=== PATIENT | male | born 1945 | race Two or more races ===

== ENCOUNTER 2019-09-29 10:59 | Emergency (ER) | payer MEDICARE ==
[2019-09-29 11:12] VITALS: RESP 18; TEMP 97.8
[2019-09-29] MEDS ORDERED: PIPERACILLIN-TAZOBACTAM 3.375 GM in SODIUM CHLORIDE 0.9% 100 ML IVPB STA (11:49)
--- NOTE | 2019-09-29 12:12 | ED ---
General Adult HPI - General Chief complaint: Abdominal Pain Stated complaint: lab recheck Time Seen by Provider: 09/29/19 11:48 Source: patient, family Mode of arrival: wheelchair Limitations: no limitations - History of Present Illness Initial comments: Dictation was produced using [employer] dictation software. please excuse any grammatical, word or spelling errors. This patient was cared for during a federal and state declared state of emergency secondary to Covid 19 Chief Complaint: 74-year-old male presents with abnormal urine History of Present Illness: 74-year-old male he is sent in to the emergency department by his primary care physician for purulent urine. Patient noticed that his urine characteristics appear to be abnormal about a week ago. Over the next couple days his urine became more cloudy. Patient denies any symptoms. He does not have any pain complaints. No flank pain. No abdominal pain. No burning on urination. Patient feels baseline. The ROS documented in this emergency department record has been reviewed and confirmed by me. Those systems with pertinent positive or negative responses have been documented in the HPI. All other systems are other negative and/or noncontributory. PHYSICAL EXAM: General Impression: Alert and oriented x3, not in acute distress HEENT: Normocephalic atraumatic, extra-ocular movements intact, pupils equal and reactive to light bilaterally, mucous membranes moist. Cardiovascular: Heart regular rate and rhythm Chest: Able to complete full sentences, no retractions, no tachypnea Abdomen: abdomen soft, non-tender, non-distended, no organomegaly Musculoskeletal: Pulses present and equal in all extremities, no peripheral edema Motor: no focal deficits noted Neurological: CN II-XII grossly intact, no focal motor or sensory deficits noted Skin: Intact with no visualized rashes Psych: Normal affect and mood : Mild left testicular pain with palpation ED course: 74-year-old male presents with abnormal urine. vital signs upon arrival are within acceptable limits. Urine was observed at bedside. It's tyler purulence. Have some mild left testicular tenderness. Laboratory evaluation obtained. CBC remarkable. Metabolic panel is negative. Urinalysis consistent with urinary tract infection. Scrotal ultrasound was performed showing incidental findings of left hydrocele mass of the left testicle and cystic area to the left testicle as well. Computed tomography scan of the abdomen and pelvis was obtained showing distended bladder with concentric wall thickening. Is also concern of possible lytic lesion to L4. Patient was notified of these findings. Post void residual was performed showing greater than 1000 mL of urine. Phillips catheter was placed with drainage of purulent fluid and urine. Patient did report significant relief with Phillips catheter placement. Patient be discharged with Phillips catheter. Patient also given pres cription for antibiotics. He is given referral to urology. Return parameters discussed. Patient will be discharged. Patient told to follow-up with his primary care physician and urology regarding the incidental findings on his imaging studies. - Related Data Previous Rx's Medication Instructions Recorded Levofloxacin [Levaquin] 750 mg PO DAILY 5 Days #5 tab 09/29/19 Allergies Allergy/AdvReac Type Severity Reaction Status Date / Time No Known Allergies Allergy Verified 09/29/19 11:12 Review of Systems ROS Statement: Those systems with pertinent positive or pertinent negative responses have been documented in the HPI. ROS Other: All systems not noted in ROS Statement are negative. Past Medical History Past Medical History: Hypertension History of Any Multi-Drug Resistant Organisms: None Reported Past Surgical History: Orthopedic Surgery Additional Past Surgical History / Comment(s): left knee surgery, screws in ank le Past Psychological History: No Psychological Hx Reported Smoking Status: Never smoker Past Alcohol Use History: Occasional Past Drug Use History: None Reported General Exam Limitations: no limitations Course Vital Signs 09/29/19 09/29/19 11:07 13:45 Temperature 97.8 F Pulse Rate 67 76 Respiratory 18 18 Rate Blood Pressure 141/80 125/72 O2 Sat by Pulse 98 97 Oximetry Medical Decision Making - Lab Data Result diagrams: 09/29/19 12:04 09/29/19 12:04 Lab Results 09/29/19 09/29/19 09/29/19 Range/Units 11:30 12:04 12:04 WBC 8.1 (3.8-10.6) k/uL RBC 4.75 (4.30-5.90) m/uL Hgb 15.6 (13.0-17.5) gm/dL Hct 45.1 (39.0-53.0) % MCV 94.9 (80.0-100.0) fL MCH 32.8 (25.0-35.0) pg MCHC 34.6 (31.0-37.0) g/dL RDW 13.5 (11.5-15.5) % Plt Count 248 (150-450) k/uL Neutrophils % 77 % Lymphocytes % 9 % Monocytes % 9 % Eosinophils % 3 % Basophils % 1 % Neutrophils # 6.2 (1.3-7.7) k/uL Lymphocytes # 0.8 L (1.0-4.8) k/uL Monocytes # 0.7 (0-1.0) k/uL Eosinophils # 0.2 (0-0.7) k/uL Basophils # 0.1 (0-0.2) k/uL Sodium 138 (137-145) mmol/L Potassium 4.2 (3.5-5.1) mmol/L Chloride 102 (98-107) mmol/L Carbon Dioxide 27 (22-30) mmol/L Anion Gap 9 mmol/L BUN 25 H (9-20) mg/dL Creatinine 1.09 (0.66-1.25) mg/dL Est GFR (CKD-EPI)AfAm 76 (>60 ml/min/1.73 sqM) Est GFR (CKD-EPI)NonAf 66 (>60 ml/min/1.73 sqM) Glucose 94 (74-99) mg/dL Calcium 9.1 (8.4-10.2) mg/dL Total Bilirubin 0.9 (0.2-1.3) mg/dL AST 29 (17-59) U/L ALT 22 (4-49) U/L Alkaline Phosphatase 98 (38-126) U/L Total Protein 6.8 (6.3-8.2) g/dL Albumin 3.8 (3.5-5.0) g/dL Urine Color Light Red Urine Appearance Turbid (Clear) Urine pH 6.0 (5.0-8.0) Ur Specific Marlin 1.015 (1.001-1.035) Urine Protein 2+ H (Negative) Urine Glucose (UA) Negative (Negative) Urine Ketones Negative (Negative) Urine Blood Small H (Negative) Urine Nitrite Positive (Negative) Urine Bilirubin Negative (Negative) Urine Urobilinogen <2.0 (<2.0) mg/dL Ur Leukocyte Esterase Large H (Negative) Urine RBC 32 H (0-5) /hpf Urine WBC >182 H (0-5) /hpf Urine WBC Clumps Many H (None) /hpf Urine Bacteria Many H (None) /hpf Disposition Clinical Impression: UTI (urinary tract infection), Urinary retention Disposition: HOME SELF-CARE Condition: Good Instructions (If sedation given, give patient instructions): Urinary Tract Infection in Men (ED), Urinary Retention in Men (ED) Additional Instructions: Please follow up with urology and primary care physician regarding incidental- abnormal findings on imaging studies. Prescriptions: Levofloxacin [Levaquin] 750 mg PO DAILY 5 Days #5 tab Is patient prescribed a controlled substance at d/c from ED?: No Referrals: Cam Mendoza MD [Primary Care Provider] - 1-2 days Macario Mendes MD [STAFF PHYSICIAN] - 1-2 days Time of Disposition: 15:22
[2019-09-29 12:32] LABS: Basophils # (A) 0.1 k/uL (0-0.2); Basophils % (A) 1 %; Eosinophils # (A) 0.2 k/uL (0-0.7); Eosinophils % (A) 3 %; HCT 45.1 % (39.0-53.0); HGB 15.6 gm/dL (13.0-17.5); Lymphocytes # (A) 0.8 k/uL (1.0-4.8); Lymphocytes % (A) 9 %; MCH 32.8 pg (25.0-35.0); MCHC 34.6 g/dL (31.0-37.0); MCV 94.9 fL (80.0-100.0); Mean Platelet Volume 8.3; Monocytes # (A) 0.7 k/uL (0-1.0); Monocytes % (A) 9 %; Neutrophils # (A) 6.2 k/uL (1.3-7.7); Neutrophils % (A) 77 %; Platelet Count 248 k/uL (150-450); RBC 4.75 m/uL (4.30-5.90); RDW 13.5 % (11.5-15.5); WBC 8.1 k/uL (3.8-10.6)
[2019-09-29 12:34] LABS: Appearance,Urine Turbid (Clear); Bacteria,Urine Many /hpf; Bilirubin,Urine Negative (Negative); Blood,Urine Small (Negative); Color,Urine Light Red; Glucose,Urine (UA) Negative (Negative); Ketones,Urine Negative (Negative); Leukocyte Esterase,Urine Large (Negative); Nitrite,Urine Positive (Negative); Protein,Urine 2+ (Negative); RBC,Urine 32 /hpf (0-5); Urobilinogen,Urine <2.0 mg/dL (<2.0); WBC,Urine >182 /hpf (0-5)
[2019-09-29 12:39] LABS: Albumin 3.8 g/dL (3.5-5.0); Calcium 9.1 mg/dL (8.4-10.2); Potassium 4.2 mmol/L (3.5-5.1); Total Bilirubin 0.9 mg/dL (0.2-1.3); Total Protein 6.8 g/dL (6.3-8.2)
[2019-09-29 12:41] LABS: Specific Gravity,Urine 1.015 (1.001-1.035)
--- NOTE | 2019-09-29 13:52 | US ---
EXAMINATION TYPE: US scrotum with doppler. DATE OF EXAM: 09/29/2019 COMPARISON: NONE CLINICAL HISTORY: 74-year-old male with left testicular pain. TECHNIQUE: Grayscale and color Doppler Duplex imaging performed of the scrotum. FINDINGS: EXAM MEASUREMENTS: TESTICLES: Right Testicle: 4.3 x 2.7 x 3.0 cm Left Testicle: 3.8 x 2.9 x 2.8 cm. Left testicle is slightly heterogeneous with a possible poorly de fined rounded 2.2 cm area anteriorly. EPIDIDYMIS HEAD: Right Epididymis: 1.0 cm with a 9 x 6 mm epididymal head cyst Left Epididymis: not clearly identified. There is a 2.2 x 2.1 cm cystic area superior to the left te sticle, possibly of epididymal etiology. Satisfactory arterial and venous flow is present bilaterally. Presence of hydroceles: yes, moderate-sized on the left with internal debris. Presence of varicoceles: yes, lateral to right testicle IMPRESSION: 1. No sonographic evidence for testicular torsion. 2. Moderate-sized left hydrocele with internal debris. 3. Varicocele noted on the right. We note that a CT abdomen and pelvis has been ordered. Retroperiton eal lymphadenopathy as a cause of unilateral right varicocele can be excluded on that study. 4. Rounded poorly defined 2.2 cm area anterior aspect of the left testicle. Urologic referral recomme nded as a subtle mass is difficult to exclude at this time. 5. 2.2 cm cystic area superior to the left testicle, possible large epididymal head cyst.
--- NOTE | 2019-09-29 14:35 | CT ---
EXAMINATION TYPE: CT abdomen pelvis w con DATE OF EXAM: 09/29/2019 COMPARISON: None. HISTORY: Purulent Urine CT DLP: 3108 mGycm, Automated Exposure Control for Dose Reduction was Utilized. CONTRAST: CT scan of the abdomen and pelvis is performed with oral and with IV Contrast, patient injected with 100 mL of Isovue 300. FINDINGS: LUNG BASES: There is mild cardiomegaly with moderate to severe three-vessel coronary artery calcifica tion and/or stents. There is trace bilateral pleural effusions. There is 3 to 4 mm calcified nodule o r granuloma posterior left lung base on axial image 13. LIVER/GB: Few calcifications scattered throughout the right hepatic lobe are present. Liver is diffus isis low dense suggesting fatty infiltration. PANCREAS: No significant abnormality is seen. SPLEEN: No significant abnormality is seen. ADRENALS: There is 1.6 x 1.1 cm low dense right adrenal nodule presumed benign lipid rich adenoma and smaller 1.6 x 0.9 cm nonspecific left adrenal nodule axial image 24. Favor benign. KIDNEYS: Some cortical thinning both kidneys. Symmetric cortical medullary uptake and excretion both kidneys without hydronephrosis seen bilaterally. Occasional roughly 1 cm simple-appearing thin-walled cysts scattered throughout the left kidney. Moderate bladder distention up to the superior L4 level with wvor-eb-utqjqxta concentric wall thickening. No suspicious intraluminal mass or calculus. Local mass effect is present. BOWEL: Poorly distended stomach. No suspicious small or large bowel dilatation. PROSTATE/SEMINAL VESICLES: Markedly enlarged heterogeneous prostate gland consistent with BPH bulging on bladder base. LYMPH NODES: No greater than 1cm abdominal or pelvic lymph nodes are appreciated. OSSEOUS STRUCTURES: Demineralization is present. Mild chronic compression fracture L1 level. Lytic le kevin in L4 level with some surrounding sclerosis is nonspecific, question subacute fracture versus ly tic lesion related to metastatic disease. Follow-up is advised. Facet arthropathy lower lumbar levels . OTHER: Moderate calcified plaque of aorta extends into branch vessels. IMPRESSION: 1. Moderately distended bladder with mild/moderate concentric wall thickening may be a product of acu te cystitis on background outlet obstruction related to marked BPH. 2. Cannot exclude focal lytic lesion involving L4 vertebra. Correlate clinically to determine need fo r further workup as differential includes myeloma versus lytic metastatic disease. Subacute fracture would be a differential due to surrounding sclerosis.
[2019-09-29 15:23] VITALS: BP 131/93; PULSE 75
== END 2019-09-29 16:07 | disposition home or self-care (01) ==
LOC: EC 10:59
DX: N39.0 Urinary tract infection, site not specified (principal); R33.9 Retention of urine, unspecified; N43.3 Hydrocele, unspecified
CPT/HCPCS: 99284 ×2; 51702 ×2; 96365 ×2; 51798; 36415; 80053; 85025; 81001; 87040; 93975; 76870; 74177; J2543; Q9967

== ENCOUNTER → 2022-04-12 | Outpatient (CLI) | payer MEDICARE ==
--- NOTE | 2022-04-12 11:52 | CT ---
EXAMINATION TYPE: CT brain wo con, CT facial bones wo con DATE OF EXAM: 04/12/2022 HISTORY: Fall injury with headache and facial pain. CT DLP: 1104.6 (accession [id number]), 480.80 (accession [id number]) mGycm. Automated Exposure Control f or Dose Reduction was Utilized. TECHNIQUE: CT scan of the head and facial bones are performed without contrast. COMPARISON: None. FINDINGS: There is no acute intracranial hemorrhage or midline shift identified. There is mild vent ricular and sulcal prominence. There is oiyv-sb-dyochhqd low attenuation in the deep and periventric ular white matter. The calvarium is intact. There is moderate to large size acute frontal scalp evonne debi with more hyperdense 1.5 cm component suggesting site of more recent or active bleed axial image 33. Age-indeterminate fractures of the nasal bones with moderate overlying soft tissue swelling favoring acute fractures. Orbital floors and rodriguez are intact. The globes are intact bilaterally. There is lef t-sided scleral calcification. There is moderate soft tissue swelling over the bilateral globes. Intr aconal fat is preserved bilaterally. The zygomatic arches are intact bilaterally. The visualized port ion of the mandible is intact. The temporomandibular joints are maintained bilaterally. Paranasal sin uses are grossly clear. IMPRESSION: 1. No acute intracranial hemorrhage or midline shift. There is mild diffuse cerebral atrophy and chr onic eriw-ih-qxkqzhdr small vessel ischemic change noted. There is moderate to large size acute fron samaria scalp hematoma. 2. Age-indeterminate suspected acute comminuted slightly displaced fractures of the nasal bones. Mode rate soft tissue swelling is noted anteriorly. No additional acute displaced facial bone fractures.
== END | disposition home or self-care (01) ==
LOC: RADCTMAIN 11:10
PROVIDERS: ATTEND Family Medicine
DX: S00.03XA Contusion of scalp, initial encounter (principal); S02.2XXA Fracture of nasal bones, initial encounter for closed fracture; S09.90XD Unspecified injury of head, subsequent encounter; I67.82 Cerebral ischemia; G31.9 Degenerative disease of nervous system, unspecified; M79.89 Other specified soft tissue disorders; X58.XXXA Exposure to other specified factors, initial encounter
CPT/HCPCS: 70450; 70486

== ENCOUNTER → 2022-10-09 | Outpatient (CLI) | payer MEDICARE ==
--- NOTE | 2022-10-09 14:17 | NM ---
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 Images acq uired 3 hours post injection. FINDINGS: There is intense abnormal uptake involving the right shoulder could be on the basis of previous traum a or severe arthropathy. Neoplastic process not excluded. Recommend There is moderate to intense abnormal uptake involving the lower cervical spine and the left likely p ost degenerative. There is moderate intensity uptake involving the left shoulder likely postoperative. There is bilateral intense uptake in the sternoclavicular joints likely postoperative area Abnormal uptake involving the left mandible likely periodontal disease. Residual focal area of uptake involving the anterior right mid rib cage likely the patient's prior tr auma. There is intense abnormal uptake involving the right knee compatible severe arthritic change. There is a photopenic defect left knee compatible with previous surgery. There is abnormal uptake involving the feet slightly post arthritic. Intense abnormal uptake at the thoracolumbar junction which could be on the basis of severe degenerat kelsey change or compression fracture. IMPRESSION: Intense abnormal uptake involving thoracolumbar junction could be on the basis of compression fractur es or severe degenerative change. If the patient has a history of malignancy then metastasis would be in the differential diagnosis. Abnormal uptake right shoulder severe intensity most likely the basis of prior trauma. Recommend x-ra y correlation to exclude other etiologies.
== END | disposition home or self-care (01) ==
LOC: RADNMMAIN 10:09
PROVIDERS: ATTEND Physical Medicine & Rehabilitation
DX: M43.16 Spondylolisthesis, lumbar region (principal); S32.010A Wedge compression fracture of first lumbar vertebra, initial encounter for closed fracture; M47.816 Spondylosis without myelopathy or radiculopathy, lumbar region; R93.7 Abnormal findings on diagnostic imaging of other parts of musculoskeletal system
CPT/HCPCS: 78306; A9503

== ENCOUNTER → 2022-11-27 | Outpatient (CLI) | payer MEDICARE ==
[2022-11-27 11:49] LABS: INR 1.1 (<1.2); Prothrombin Time 11.5 sec (9.0-12.0)
[2022-11-27 15:47] LABS: Basophils # (A) 0.12 X 10*3/uL (0.00-0.10); Basophils % (A) 1.9 %; Eosinophils # (A) 0.37 X 10*3/uL (0.04-0.35); Eosinophils % (A) 5.8 %; HCT 50.8 % (39.6-50.0); HGB 17.2 d/dL (13.0-17.0); Lymphocytes # (A) 0.77 X 10*3/uL (0.90-5.00); Lymphocytes % (A) 12.1 %; MCH 31.8 pg (27.0-32.0); MCHC 33.9 d/dL (32.0-37.0); MCV 93.9 FL (80.0-97.0); Mean Platelet Volume 10.7 FL (9.5-12.2); Monocytes # (A) 0.65 X 10*3/uL (0.20-1.00); Monocytes % (A) 10.2 %; NRBC Per 100 WBC 0 X 10*3/uL (0.00-0.01); Neutrophils # (A) 4.43 X 10*3/uL (1.80-7.70); Neutrophils % (A) 69.8 %; Platelet Count 288 X 10*3/uL (140-440); RBC 5.41 X 10*6/uL (4.40-5.60); RDW 14.7 % (11.5-14.5); WBC 6.35 X 10*3/uL (4.50-10.00)
[2022-11-27 16:10] LABS: Appearance,Urine Clear (Clear); Bilirubin,Urine Negative (Negative); Blood,Urine Negative (Negative); Color,Urine Yellow (Yellow); Ketones,Urine Negative (Negative); Nitrite,Urine Negative (Negative); Specific Gravity,Urine 1.008 (1.001-1.030)
[2022-11-27 16:17] LABS: ALT 19 U/L (10-49); AST 25 U/L (14-35); Albumin 4.4 d/dL (3.8-4.9); Alkaline Phosphatase 94 U/L (41-126); Blood Urea Nitrogen 12.1 mg/dL (9.0-27.0); Calcium 10.1 mg/dL (8.7-10.3); Carbon Dioxide 33.7 mmol/L (21.6-31.8); Chloride 100 mmol/L (96-109); Globulin 2.2 d/dL (1.6-3.3); Glucose 93 mg/dL (70-110); Sodium 142 mmol/L (135-145); Total Protein 6.6 d/dL (6.2-8.2)
== END | disposition home or self-care (01) ==
LOC: LABWHC1 10:46
PROVIDERS: ATTEND Orthopaedic Surgery Orthopaedic Surgery of the Spine
DX: Z01.818 Encounter for other preprocedural examination (principal); M48.54XS Collapsed vertebra, not elsewhere classified, thoracic region, sequela of fracture
CPT/HCPCS: 36415; 80053; 81003; 85025; 85610; 85730; 86850; 86900; 86901

== ENCOUNTER → 2022-12-05 | Outpatient (CLI) | payer MEDICARE ==
--- NOTE | 2022-12-05 10:45 | XR ---
EXAMINATION TYPE: XR chest 2V DATE OF EXAM: 12/05/2022 COMPARISON: NONE HISTORY: Shortness of breath TECHNIQUE: Frontal and lateral views of the chest are obtained. FINDINGS: Scattered senescent parenchymal changes noted. Hyperinflation compatible with COPD. No evidence for infiltrate. No evidence for atelectasis. Focal eventration right hemidiaphragm. Heart size is stable. Mediastinal structures are stable and grossly unremarkable. No evidence for hilar prominence. Degenerative changes dorsal spine. IMPRESSION: 1. No evidence for acute pulmonary disease.
== END | disposition home or self-care (01) ==
LOC: RADXRMAIN 10:26
PROVIDERS: ATTEND Orthopaedic Surgery Orthopaedic Surgery of the Spine
DX: Z01.818 Encounter for other preprocedural examination (principal); M48.54XA Collapsed vertebra, not elsewhere classified, thoracic region, initial encounter for fracture; R06.02 Shortness of breath
CPT/HCPCS: 71046

== ENCOUNTER 2022-12-06 08:40 | Day surgery (SDC) | payer MEDICARE ==
[~2022-12-06 08:40] MED LIST: HYDROmorphone 0.5 MG/0.5 ML SYRINGE IVP PRN; LACTATED RINGERS 1,000 ML IV SCH; LIDOCAINE 1% (10MG/ML) FOR IV START INTRADERMA PRN; ONDANSETRON 4 MG/2 ML VIAL IVP ONE; ceFAZolin 1,000 MG in SODIUM CHLORIDE 0.9% IRRIGATIO 1,000 ML IRRIGATION PRN
[2022-12-06] MEDS ORDERED: MIDAZOLAM 2 MG/2 ML VIAL IVP ONE (09:47)
[2022-12-06] MEDS ORDERED: PROPOFOL 10 MG/ML 20 ML VIAL IV ONE (10:20)
[2022-12-06] MEDS ORDERED: SUCCINYLCHOLINE CHLORIDE 200 MG/10 ML VIAL IV ONE (10:20)
[2022-12-06] MEDS ORDERED: LIDOCAINE 2% INJ 20 MG/ML (2 ML VIAL) ONE (10:20)
[2022-12-06] MEDS ORDERED: fentaNYL (PF) 50 MCG/ML 2 ML AMP ONE (10:20)
[2022-12-06] MEDS ORDERED: ePHEDrine 50 MG/ML 1 ML VIAL ONE (10:20)
[2022-12-06] MEDS ORDERED: IOPAMIDOL M200 10 ML VIAL MISCELLANE ONE (10:40)
[2022-12-06] MEDS ORDERED: BUPIVACAINE (PF) 0.5% 30 ML VIAL SQ ONE ×2 (10:40→10:53)
[2022-12-06] MEDS ORDERED: LACTATED RINGERS 1,000 ML IV ONE (11:15)
[2022-12-06] MEDS ORDERED: HYDROcodone/APAP 5-325MG 1 EACH TAB PO PRN (11:23)
[2022-12-06] MEDS ORDERED: HYDROmorphone 0.5 MG/0.5 ML SYRINGE IVP PRN (11:23)
[2022-12-06] MEDS ORDERED: ONDANSETRON 4 MG/2 ML VIAL IVP PRN (11:23)
[2022-12-06] MEDS ORDERED: BENZOCAINE/MENTHOL LOZENG 1 EACH LOZENGE MUCOUS MEM PRN (11:23)
[2022-12-06] MEDS ORDERED: SODIUM CHLORIDE 0.9% 1,000 ML IV SCH (11:30)
--- NOTE | 2022-12-06 11:35 | P.OP ---
Date of Procedure: 12/06/22 Preoperative Diagnosis: T11 subacute compression deformity fracture, thoracic or lumbar back pain, neck signal at T11 vertebral body, failed conservative treatment Postoperative Diagnosis: T11 subacute compression deformity fracture, thoracic or lumbar back pain, neck signal at T11 vertebral body, failed conservative treatment Anesthesia: GETA Pathology: other (T11 vertebral body biopsy) Condition: stable Disposition: PACU Description of Procedure: BRIEF OPERATIVE NOTE Preoperative Diagnosis: T11 subacute compression deformity fracture, thoracic or lumbar back pain, neck signal at T11 vertebral body, failed conservative treatment Postoperative Diagnosis: Same Procedure: Kyphoplasty of T11 Vertebral body biopsy of T11 Use of biplanar fluoroscopic guidance Surgeon: Dr. Garcia [employer] Consultant: Tang Rodriguez is present throughout the entire the case persistence during positioning, dissection, exposure, visualization, and all crucial elements of the case as well as closure. Anesthesia: General anesthesia Estimated blood loss: Less than 10 mL Specimen: Vertebral body biopsy sent to pathology in formalin Complications: None apparent Components implanted: Bone cement partially 7 mL Disposition: To recovery room in good stable condition. OPERATIVE INDICATIONS The patient has been having issues in their back ever since sustaining an injury. The patient has been through conservative treatment. They attempted conservative care with bracing however they're not having any benefit despite brace use. They continue to have significant pain and debility due to their fracture. He had an obvious fracture at T11 and was also found have a compression deformity at L1. His pain is primarily at the rec lumbar junction and further imaging showed obvious activity at the T11 fracture without new activity at the L1 and we felt the L1 fracture was stable. We felt that he could do well with further treatment at the T11 fracture. We discussed various treatment options including surgery, and the patient wishes to proceed with surgery We discussed the risk, patient's alternatives and benefits of surgery including but not limited to, risk of bleeding risk of infection, risk of need for further surgery, risk of decreased, loss of motion, loss of function, cement extravasation, nerve damage, paralysis, heart attack, blindness and . OPERATIVE SUMMARY After discussing all the risks, patient alternatives and benefits at length, the patient elected to proceed with surgical intervention, signed informed consent, and presented for their procedure. The patient was seen and examined in the preoperative holding area and the surgical site was marked. The patient was given antibiotics and brought to the operating room. The patient was sedated and intubated by anesthesia in standard fashion. The patient was positioned on to the operating room table in a prone position on the appropriate well-padded and well molded bilateral chest rolls. We were careful to pad any bony prominences and pressure points. We were careful to maintain the patient's cervical spine and good neutral alignment and position throughout. We used 2 C-arm machines to establish biplanar fluoroscopic guidance in AP and lateral positions. We were able to localize the fractures appropriately. The patient was prepped and draped in a normal standard fashion. An appropriate timeout and keystone protocol performed. We were able to proceed with the surgery. The local wound area was infiltrated with local anesthetic. An incision was made over the lateral aspect of the pedicle over the appropriate levels with a small 2 mm stab incision at T11 on the right. Intraoperative fluoroscopy was taken which showed a marker at the appropriate level. With the appropriate level positively confirmed, I was able to position a sharp trocar over the lateral aspect of the pedicle. As able to advance the trocar into the pedicle and into the posterior aspect of vertebral body being careful to avoid penetration cephalad caudad or medially. The trocar was placed appropriately into the posterior aspect of vertebral body at the appropriate levels. This was confirmed with C-arm guidance. With the trocar intact I was then able to take a bone biopsy with a biopsy punch or a bony drill. The biopsy specimen was passed off to be sent to pathology in formalin. I was then able to place the kyphoplasty balloon within the vertebral body. The position was checked on C-arm. I was able to inflate the balloon under low pressure and visualization with C-arm. The balloon was well enclosed within the vertebral body. The cement was prepared. With the cement at appropriate working condition the balloons were deflated and removed. I was able to place bony cement with trocar with the cement delivery device under low pressure. It had good fill within the vertebral body at T11 which had had significant compression but we are able get good space at the endplates. There is no evidence of any extravasation of the cement posteriorly toward the canal. The cement was well contained at the appropriate levels. The cement was allowed to cure appropriately. The trochars removed and final images were taken on C-arm. This showed the cement at the appropriate levels. We were able to proceed with closure. The wound was cleaned and dried and dressed with the appropriate dressing. The drapes were broken down. The patient was gently rolled back onto their hospital bed being careful to maintain their cervical spine and good neutral alignment and position. They were woken up by anesthesia, extubated, and brought to the recovery room in good stable condition. The patient will be admitted to the hospital for observation and for appropriate postoperative care, medical management and monitoring. We will continue to follow them closely about the postoperative course.
[2022-12-06 11:55] VITALS: TEMP 97
[2022-12-06 11:58] VITALS: RESP 16
[2022-12-06] MEDS ORDERED: ACETAMINOPHEN TAB 325 MG TAB PO SCH (12:00)
--- NOTE | 2022-12-06 12:01 | XR ---
Intraoperative/procedural fluoroscopic services were provided for T11 kyphoplasty. Total fluoroscopy time is 37.3 seconds with a total of 7 submitted images to PACS. Total DAP 20.011 Gycm2. Please see the operative note for further details.
[2022-12-06 13:05] VITALS: BP 130/81; PULSE 68
== END 2022-12-06 13:29 | disposition home or self-care (01) ==
LOC: OR 08:40
PROVIDERS: ATTEND Orthopaedic Surgery Orthopaedic Surgery of the Spine
DX: S22.080A Wedge compression fracture of T11-T12 vertebra, initial encounter for closed fracture (principal); M86.68 Other chronic osteomyelitis, other site; M25.78 Osteophyte, vertebrae; M51.35 Other intervertebral disc degeneration, thoracolumbar region; M47.815 Spondylosis without myelopathy or radiculopathy, thoracolumbar region; E66.9 Obesity, unspecified; Z68.27 Body mass index [BMI] 27.0-27.9, adult; Z79.01 Long term (current) use of anticoagulants; Z79.899 Other long term (current) drug therapy; E78.5 Hyperlipidemia, unspecified; E03.9 Hypothyroidism, unspecified; Z82.49 Family history of ischemic heart disease and other diseases of the circulatory system; Z83.3 Family history of diabetes mellitus; Z86.59 Personal history of other mental and behavioral disorders; Z98.890 Other specified postprocedural states; Z79.890 Hormone replacement therapy; W19.XXXA Unspecified fall, initial encounter; Z88.4 Allergy status to anesthetic agent; Z88.8 Allergy status to other drugs, medicaments and biological substances; S32.010A Wedge compression fracture of first lumbar vertebra, initial encounter for closed fracture; I10 Essential (primary) hypertension; I48.91 Unspecified atrial fibrillation
CPT/HCPCS: 22513; 86900; 86901; 86850; 88342; 88307; 88311; 88341; 72070; C1713; J2250; J0330; J0690; J2405; J3010; J2704; Q9966; J2001; J0665

== ENCOUNTER → 2023-03-01 | Outpatient (CLI) | payer MEDICARE ==
[2023-03-01 11:53] LABS: African American GFR (CKD) >90 (>60 ml/min/1.73 sqM); Blood Urea Nitrogen 16 mg/dL (9-20); Non-African American GFR(CKD) 81 (>60 ml/min/1.73 sqM)
--- NOTE | 2023-03-01 20:40 | CT ---
EXAMINATION TYPE: CT iac w con DATE OF EXAM: 03/01/2023 COMPARISON: None HISTORY: hearing loss CT DLP: 142.7 mGycm Automated exposure control for dose reduction was used. CONTRAST: CT scan of the IACs is performed with IV Contrast, patient injected with 100 mL of Isovue 300. FINDINGS: The external auditory canals are patent bilaterally.. Knee is within the left ear. Mastoid air cells show no evidence of abnormal opacification bilaterally. The middle ear ossicles are symmetric and unremarkable. There is no evidence of suspicious surrounding soft tissue density t o suggest cholesteatoma. The scutum is preserved bilaterally. The cochlea and the semicircular canals are symmetric and unremarkable. Vestibular aqueduct and inte rnal carotid canal appear unremarkable. Temporomandibular joints are maintained bilaterally. IMPRESSION: No significant abnormality to account for patient's symptoms.
== END | disposition home or self-care (01) ==
LOC: RADCTMAIN 11:10
PROVIDERS: ATTEND Otolaryngology
DX: H91.91 Unspecified hearing loss, right ear (principal); N18.9 Chronic kidney disease, unspecified
CPT/HCPCS: 82565; 84520; 70481; 36415; Q9967